=== PATIENT | male | born 1935 | race Caucasian/White ===

== ENCOUNTER → 2016-09-17 | Outpatient (REF) | payer OTHER ==
[~2016-09-17] MED LIST: ASPI325T PO; CALCTAB PO; HYDR25TAB PO; ICAPCAP PO; LISI10TA4 PO; MULT1TAB10 PO; OMEP40CA2 PO; PERCOCET PO; VITA200016 PO
== END ==
LOC: M SFHCLERA 12:46
PROVIDERS: ATTEND Physician Assistant
DX: J02.9 Acute pharyngitis, unspecified (principal)

== ENCOUNTER → 2017-03-08 | Outpatient (CLI) | payer OTHER ==
--- NOTE | 2017-03-08 11:23 | REP ---
Clinical: Hypertension . Comparison: 04/07/2016 . Technique: PA and lateral. Findings: The mediastinum and cardiac silhouette are normal. The lung elizabeth are clear and without acute consolidation, effusion, or pneumothorax. The skeletal structures are intact and normal. Impression: 1. No acute cardiopulmonary process. Signed by Nir Yoder MD 03/08/2017 11:14 A
[2017-03-08 12:08] LABS: ALBUMIN/GLOBULIN RATIO 1.33 (1.00-1.93); ALKALINE PHOSPHATASE 50 U/L (45-117); ALT/SGPT 34 U/L (12-78); ANION GAP 7 MEQ/L (8-16); AST/SGOT 19 U/L (15-37); BILIRUBIN,TOTAL 0.5 MG/DL (0.2-1.0); BLOOD UREA NITROGEN 24 MG/DL (7-18); CALCIUM LEVEL 8.5 MG/DL (8.8-10.2); CARBON DIOXIDE LEVEL 26 MEQ/L (21-32); CHLORIDE LEVEL 102 MEQ/L (98-107); CHOLESTEROL LEVEL 182 MG/DL (<200); CREATININE FOR GFR 1.15 MG/DL (0.70-1.30); GLOMERULAR FILTRATION RATE > 60.0 (>35); GLUCOSE, FASTING 152 MG/DL (83-110); POTASSIUM SERUM 3.9 MEQ/L (3.5-5.1); SODIUM LEVEL 135 MEQ/L (136-145); TRIGLYCERIDES LEVEL 256 MG/DL (<150)
[2017-03-08 12:35] LABS: MEAN CORPUSCULAR HEMOGLOBIN 32.3 pg (27.0-33.0); MEAN CORPUSCULAR HGB CONC 34.5 g/dl (32.0-36.5); MEAN CORPUSCULAR VOLUME 93.8 fl (80.0-96.0); RED CELL DISTRIBUTION WIDTH 11.9 % (11.5-14.5); WHITE BLOOD COUNT 6.9 K/mm3 (4.0-10.0)
--- NOTE | 2017-03-10 13:24 | ECGEPIP ---
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
== END ==
LOC: M LAB 10:44
PROVIDERS: ATTEND Family Medicine
DX: I10 Essential (primary) hypertension (principal); N40.0 Benign prostatic hyperplasia without lower urinary tract symptoms; Z79.899 Other long term (current) drug therapy

== ENCOUNTER 2018-10-27 13:06 | Emergency (ER) | payer MEDICARE, OTHER ==
[~2018-10-27] VITALS: Ht 175.3 cm; Wt 86.4 kg
[2018-10-27 13:55] LABS: BASO % 0.4 % (0.0-1.0); EOS % 0.4 % (0.0-3.0); HEMATOCRIT 41.8 % (42.0-52.0); HEMOGLOBIN 14.4 g/dl (13.5-17.5); LYMPH # 2.1 10^3/uL (1.5-4.5); LYMPH % 27.5 % (24.0-44.0); MEAN CORPUSCULAR HEMOGLOBIN 31.8 pg (27.0-33.0); MEAN CORPUSCULAR HGB CONC 34.4 g/dl (32.0-36.5); MEAN CORPUSCULAR VOLUME 92.3 fl (80.0-96.0); MONO # 0.8 10^3/uL (0.0-0.8); MONO % 10.2 % (0.0-5.0); NEUTROPHILS # 4.6 10^3/uL (1.8-7.7); NEUTROPHILS % 61.1 % (36.0-66.0); PLATELET COUNT, AUTOMATED 277 10^3/uL (150-450); RED BLOOD COUNT 4.53 10^6/uL (4.30-6.10); WHITE BLOOD COUNT 7.5 10^3/uL (4.0-10.0)
[2018-10-27 14:05] LABS: INR 1.01; PROTHROMBIN TIME 13.4 SECONDS (12.1-14.4)
[2018-10-27 14:06] LABS: PARTIAL THROMBOPLASTIN TIME 26.8 SECONDS (25.4-37.6)
--- NOTE | 2018-10-27 14:12 | REP ---
AP PORTABLE CHEST: 10/27/2018. COMPARISON: 03/08/2017 CLINICAL HISTORY: Chest pain. FINDINGS: The lung elizabeth are adequately inflated. Some minor basilar fibrotic change. Lordotic projection of the portable chest limits evaluation of the posterior lower lung zones. No gross infiltrate or effusion. No cardiomegaly, vascular redistribution, or pulmonary edema. The aorta is mildly tortuous but without gross aneurysm. Airway is intact. No abnormal widening of the mediastinum. Degenerative changes AC joints and shoulders as well as the spine. There are post-traumatic changes of the right lateral 6th rib with healing and remodeling. IMPRESSION: 1. Lordotic chest with slight exaggeration of heart size, no gross cardiomegaly, vascular redistribution , or edema. No visible infiltrate or definite effusion seen. The posterior lower lung zones are obscured on the portable lordotic chest. 2. Old healed and remodeled right lateral 6th rib fracture. Some minor basilar fibrotic change. Aorta tortuous but without aneurysm. Electronically Signed by Rogers Vial MD 10/27/2018 07:52 P
[2018-10-27 14:22] LABS: ALBUMIN 3.9 GM/DL (3.2-5.2); ALT/SGPT 27 U/L (12-78); BILIRUBIN,DIRECT 0.1 MG/DL (0.0-0.2); BILIRUBIN,TOTAL 0.5 MG/DL (0.2-1.0); BLOOD UREA NITROGEN 22 MG/DL (7-18); CALCIUM LEVEL 9.1 MG/DL (8.8-10.2); CARBON DIOXIDE LEVEL 31 MEQ/L (21-32); CHLORIDE LEVEL 103 MEQ/L (98-107); CPK CREATINE PHOSPHOKINASE 155 U/L (39-308); CREATININE FOR GFR 1.33 MG/DL (0.70-1.30); FREE T4 0.92 NG/DL (0.76-1.46); GLOMERULAR FILTRATION RATE 54.5 (>35); GLUCOSE, FASTING 102 MG/DL (70-100); LIPASE 206 U/L (73-393); MB/CK RELATIVE INDEX 1.48 (< OR =4); POTASSIUM SERUM 3.9 MEQ/L (3.5-5.1); SODIUM LEVEL 139 MEQ/L (136-145); THYROID STIMULATING HORMONE 0.716 uIU/ML (0.358-3.740); TOTAL PROTEIN 7.3 GM/DL (6.4-8.2); TROPONIN I < 0.02 NG/ML (< 0.10)
[2018-10-27] MEDS ORDERED: NS 1,000 ML IV SCH (15:30)
[2018-10-27 15:58] LABS: ERYTHROCYTE SEDIMENTATION RATE 9 mm/hr (0-20)
[2018-10-27 17:00] VITALS: BP 145/81
[2018-10-27] MEDS ORDERED: CIPROFLOXACIN 400 MG in APPROPRIATE DILUENT 1 EA IV ONE (17:30)
[2018-10-27] MEDS ORDERED: metroNIDAZOLE 500 MG in APPROPRIATE DILUENT 1 EA IV ONE (17:30)
--- NOTE | 2018-10-28 07:53 | REP ---
CT BRAIN WITHOUT CONTRAST: 10/27/2018. CLINICAL HISTORY: Headache. FINDINGS: There are no prior studies. Soft tissue and bone windows are reviewed for each slice level. Lateral ventricles are midline, symmetric, mildly dilated and proportionate to the moderately diffuse cerebral atrophy. All of this is age appropriate. Heterogeneous low attenuation white matter changes are seen throughout representing chronic small vessel white matter ischemic disease. There is no acute infarct, intracranial hemorrhage, mass, mass effect, or edema. No extra-axial fluid collections. The brainstem intact. Moderate atrophy in the cerebellum in a symmetric fashion. No posterior fossa hemorrhage. Bone windows show the mastoids and visualized sinuses clear. Skull base and calvarium are without fracture or focal lesion. There are vascular calcifications in the carotid siphons. IMPRESSION: 1. Chronic small vessel white matter ischemic changes throughout with ventriculomegaly in proportion to the cortical atrophy. This is age appropriate. No acute infarct, intracranial hemorrhage, mass, mass effect, or edema. 2. No fracture skull base or calvarium, and the sinuses and mastoids are clear. Electronically Signed by Rogers Vail MD 10/28/2018 08:23 A
--- NOTE | 2018-10-28 16:27 | ECGEPIP ---
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
== END 2018-10-27 17:39 | disposition home or self-care (01) ==
LOC: M ED 13:06
DX: R51 Headache (principal); N17.9 Acute kidney failure, unspecified; R00.1 Bradycardia, unspecified; I10 Essential (primary) hypertension; K21.9 Gastro-esophageal reflux disease without esophagitis; Z87.81 Personal history of (healed) traumatic fracture; Q25.46 Tortuous aortic arch; Z79.899 Other long term (current) drug therapy

== ENCOUNTER 2019-05-19 15:40 | Emergency (ER) | payer MEDICARE ==
[~2019-05-19] VITALS: Ht 175.3 cm; Wt 85.0 kg
[~2019-05-19 15:40] MED LIST changes: +HYDR-2541 PO; -HYDR25TAB PO; +OXYC1TAB23 PO; -PERCOCET PO
[2019-05-19] MEDS ORDERED: ONDANSETRON 4MG/2ML VIAL (J2405) IV ONE (16:45)
[2019-05-19 17:14] LABS: BASO % 0.4 % (0.0-1.0); EOS % 0.1 % (0.0-3.0); HEMATOCRIT 46.1 % (42.0-52.0); HEMOGLOBIN 15.8 g/dl (13.5-17.5); LYMPH # 1.6 10^3/uL (1.5-5.0); LYMPH % 14.8 % (24.0-44.0); MEAN CORPUSCULAR HEMOGLOBIN 32.2 pg (27.0-33.0); MEAN CORPUSCULAR HGB CONC 34.3 g/dl (32.0-36.5); MEAN CORPUSCULAR VOLUME 93.9 fl (80.0-96.0); MONO # 0.7 10^3/uL (0.0-0.8); MONO % 6.5 % (0.0-5.0); NEUTROPHILS # 8.4 10^3/uL (1.5-8.5); NEUTROPHILS % 77.6 % (36.0-66.0); PLATELET COUNT, AUTOMATED 286 10^3/uL (150-450); RED BLOOD COUNT 4.91 10^6/uL (4.30-6.10); WHITE BLOOD COUNT 10.8 10^3/uL (4.0-10.0)
[2019-05-19 17:41] LABS: ALBUMIN 4.2 GM/DL (3.2-5.2); ALT/SGPT 35 U/L (12-78); BILIRUBIN,DIRECT 0.1 MG/DL (0.0-0.2); BILIRUBIN,TOTAL 0.5 MG/DL (0.2-1.0); BLOOD UREA NITROGEN 20 MG/DL (7-18); CALCIUM LEVEL 9.3 MG/DL (8.8-10.2); CARBON DIOXIDE LEVEL 29 MEQ/L (21-32); CHLORIDE LEVEL 100 MEQ/L (98-107); CK-MB VALUE MASS 2.6 NG/ML (<3.6); CPK CREATINE PHOSPHOKINASE 169 U/L (39-308); CREATININE FOR GFR 1.23 MG/DL (0.70-1.30); GLOMERULAR FILTRATION RATE 59.7 (>35); GLUCOSE, FASTING 119 MG/DL (70-100); LIPASE 211 U/L (73-393); MB/CK RELATIVE INDEX 1.54 (< OR =4); POTASSIUM SERUM 4.5 MEQ/L (3.5-5.1); SODIUM LEVEL 137 MEQ/L (136-145); TOTAL PROTEIN 7.7 GM/DL (6.4-8.2); TROPONIN I < 0.02 NG/ML (< 0.10)
[2019-05-19 18:30] VITALS: BP 155/79
[2019-05-19] MEDS ORDERED: ONDA4TAB6 PO (18:58)
[2019-05-19] MEDS ORDERED: ONDANSETRON 4 MG TAB (S0181) PO ONE (19:30)
--- NOTE | 2019-05-19 20:42 | ECGEPIP ---
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
[2019-05-20] MEDS ORDERED: MULTCAP PO (09:58)
[2019-05-20] MEDS ORDERED: HYDR12.55 PO (09:58)
== END 2019-05-19 19:44 | disposition home or self-care (01) ==
LOC: M ED 15:40
DX: K52.9 Noninfective gastroenteritis and colitis, unspecified (principal)

== ENCOUNTER 2019-05-20 07:30 | Inpatient (IN) | payer MEDICARE ==
[~2019-05-20] VITALS: Ht 175.3 cm; Wt 85.5 kg
[~2019-05-20 07:30] MED LIST changes: +ONDA4TAB6 PO
[2019-05-20] MEDS ORDERED: METOCLOPRAMIDE INJ 10MG/2ML VIAL (J2765) IV ONE (08:00)
[2019-05-20] MEDS ORDERED: NS 500 ML IV ONE (08:00)
[2019-05-20] MEDS ORDERED: ISOVUE-370 76% 100ML VIAL (Q9967) As Ordered ONE (08:23)
[2019-05-20 08:29] LABS: BASO % 0.1 % (0.0-1.0); HEMATOCRIT 45.3 % (42.0-52.0); HEMOGLOBIN 15.8 g/dl (13.5-17.5); LYMPH # 1.7 10^3/uL (1.5-5.0); LYMPH % 10.4 % (24.0-44.0); MEAN CORPUSCULAR HEMOGLOBIN 31.9 pg (27.0-33.0); MEAN CORPUSCULAR HGB CONC 34.9 g/dl (32.0-36.5); MEAN CORPUSCULAR VOLUME 91.3 fl (80.0-96.0); MONO % 6.2 % (0.0-5.0); NEUTROPHILS # 13.1 10^3/uL (1.5-8.5); NEUTROPHILS % 82.8 % (36.0-66.0); PLATELET COUNT, AUTOMATED 321 10^3/uL (150-450); RED BLOOD COUNT 4.96 10^6/uL (4.30-6.10); WHITE BLOOD COUNT 15.9 10^3/uL (4.0-10.0)
[2019-05-20 09:00] LABS: ACETAMINOPHEN LEVEL < 2.0 UG/ML (10.0-30.0); ALBUMIN 4.1 GM/DL (3.2-5.2); ALT/SGPT 33 U/L (12-78); BILIRUBIN,DIRECT 0.2 MG/DL (0.0-0.2); BILIRUBIN,TOTAL 0.7 MG/DL (0.2-1.0); CPK CREATINE PHOSPHOKINASE 118 U/L (39-308); LIPASE 155 U/L (73-393); MB/CK RELATIVE INDEX 1.69 (< OR =4); SALICYLATE LEVEL < 1.7 MG/DL (5.0-30.0); TOTAL PROTEIN 7.1 GM/DL (6.4-8.2); TROPONIN I < 0.02 NG/ML (< 0.10)
[2019-05-20 09:04] LABS: AMPHETAMINES LEVEL URINE NEGATIVE (NEGATIVE); BARBITURATES URINE NEGATIVE (NEGATIVE); BENZODIAZEPINES URINE NEGATIVE (NEGATIVE); CANNABINOIDS URINE NEGATIVE (NEGATIVE); COCAINE METABOLITE URINE NEGATIVE (NEGATIVE); METHADONE URINE NEGATIVE (NEGATIVE); OPIATES URINE NEGATIVE (NEGATIVE); PHENCYCLIDINE URINE NEGATIVE (NEGATIVE)
[2019-05-20] MEDS ORDERED: HYDR12.55 PO (09:58)
[2019-05-20] MEDS ORDERED: MULTCAP PO (09:58)
--- NOTE | 2019-05-20 11:10 | HPEPDOC ---
[facility] Medical History & Physical Date of Admission May 20, 2019 Date of Service: May 20, 2019 History and Physical CHIEF COMPLAINT: nausea/vomiting HISTORY OF PRESENT ILLNESS: 83 yo male for 2 day history of intractable nausea with vomiting, occasionally bilious. Unable to tolerate liquid or solid food. Denies any other symptoms. Denies abdominal pain, chest pain, shortness of breath, headaches, diarrhea. PAST MEDICAL HISTORY: 1. HTN 2. GERD ALLERGIES: Please see below. REVIEW OF SYSTEMS: Negative except as per HPI. HOME MEDICATIONS: Please see below. PHYSICAL EXAMINATION: VITAL SIGNS: See below General: NAD, lying comfortably in bed, elderly HEENT: NC/AT, EOMI Lungs: CTA B/L Heart: +S1S2, RRR Abd: soft, NT, +BS Ext: no edema LABORATORY DATA: See below. MICROBIOLOGY: Please see below. ASSESSMENT/PLAN: 83 yo male for 2 day history of intractable nausea and vomiting, PMHx HTN, GERD. #N/V - NPO/IV fluids - GI c/s - possible EGD #HTN - continue lisinopril, hold HCTZ #GERD - continue PPI BID Vital Signs Vital Signs Date Time Temp Pulse Resp B/P (MAP) Pulse Ox O2 Delivery O2 Flow Rate FiO2 05/20/19 07:39 98.2 77 17 144/66 (92) 97 Room Air Laboratory Data Labs 24H Laboratory Tests 2 05/20/19 08:02: Immature Granulocyte % (Auto) 0.5, White Blood Count 15.9H, Red Blood Count 4.96, Hemoglobin 15.8, Hematocrit 45.3, Mean Corpuscular Volume 91.3, Mean Corpuscular Hemoglobin 31.9, Mean Corpuscular Hemoglobin Concent 34.9, Red Cell Distribution Width 12.1, Platelet Count 321, Neutrophils (%) (Auto) 82.8H, Lymphocytes (%) (Auto) 10.4L, Monocytes (%) (Auto) 6.2H, Eosinophils (%) (Auto) 0.0, Basophils (%) (Auto) 0.1, Neutrophils # (Auto) 13.1H, Lymphocytes # (Auto) 1.7, Monocytes # (Auto) 1.0H, Eosinophils # (Auto) 0.0, Basophils # (Auto) 0.0, Nucleated Red Blood Cells % (auto) 0.0, Lactic Acid Level 2.7*H, Aspartate Amino Transf (AST/SGOT) 17, Alanine Aminotransferase (ALT/SGPT) 33, Alkaline Phosphatase 55, Total Bilirubin 0.7, Direct Bilirubin 0.2, Total Creatine Kinase 118, Creatine Kinase MB 2.0, Creatine Kinase MB Relative Index 1.69, Troponin I < 0.02, Total Protein 7.1, Albumin 4.1, Albumin/Globulin Ratio 1.37, Lipase 155, Salicylates Level < 1.7L, Acetaminophen Level < 2.0L 05/20/19 08:04: Urine Amphetamines Screen NEGATIVE, Urine Benzodiazepines Screen NEGATIVE, Urine Opiates Screen NEGATIVE, Urine Methadone Screen NEGATIVE, Urine Barbiturates Screen NEGATIVE, Urine Phencyclidine Screen NEGATIVE, Urine Cocaine Metabolite Screen NEGATIVE, Urine Cannabinoids Screen NEGATIVE 05/20/19 08:07: POC Glucose (Misc Panel) 144H, POC Sodium (Misc Panel) 132L, POC Potassium (Misc Panel) 3.6, POC Chloride (Misc Panel) 94L, POC Total CO2 (Misc Panel) 28.0H, POC Blood Urea Nitrogen (Misc Panel 25, POC Ionized Calcium (Misc Panel) 4.2L, POC Creatinine (Misc Panel) 1.2, POC Hematocrit (Misc Panel) 48.0 CBC/BMP Laboratory Tests 05/20/19 08:02 Red Blood Count 4.96, Mean Corpuscular Volume 91.3, Mean Corpuscular Hemoglobin 31.9, Mean Corpuscular Hemoglobin Concent 34.9, Red Cell Distribution Width 12.1, Neutrophils (%) (Auto) 82.8 H, Lymphocytes (%) (Auto) 10.4 L, Monocytes (%) (Auto) 6.2 H, Eosinophils (%) (Auto) 0.0, Basophils (%) (Auto) 0.1, Neutrophils # (Auto) 13.1 H, Lymphocytes # (Auto) 1.7, Monocytes # (Auto) 1.0 H, Eosinophils # (Auto) 0.0, Basophils # (Auto) 0.0 Home Medications Scheduled Hydrochlorothiazide (Hydrochlorothiazide) 12.5 Mg Tablet, 12.5 MG PO DAILY Lisinopril (Lisinopril) 10 Mg Tab, 10 MG PO DAILY Multivitamin (Multivitamins) 1 Each Capsule, 1 CAP PO DAILY Omeprazole (Omeprazole) 40 Mg Cap, 40 MG PO BID Allergies Coded Allergies: No Known Allergies (Unverified , 05/19/19) A-FIB/CHADSVASC A-FIB History Current/History of A-Fib/PAF?: No Current PO Anticoag Therapy: No HEATH LUCERO MD May 20, 2019 11:10
[2019-05-20 11:30] VITALS: BP 136/66
[2019-05-20] MEDS: LISINOPRIL 10 MG TAB PO SCH (12:20)
[2019-05-20] MEDS: OMEPRAZOLE 20 MG CAP PO SCH ×2 (12:20→21:10)
--- NOTE | 2019-05-20 12:20 | REP ---
CT of the head without contrast Indication: Delusional, vomiting, evaluate for mass/ICH. Comparison: Head CT of 10/27/2018. Technique: Axial CT of the head was performed without contrast. Findings: There is no visible soft tissue swelling or calvarial fracture. There is no evidence of acute intracranial hemorrhage or extra-axial fluid collection. There is a some similar appearance of scattered hypodensities within the periventricular and subcortical white matter which is nonspecific but suggestive of microvascular ischemic disease. There is no mass effect or midline shift. The basal cisterns are patent. Note is made of intracranial vascular calcification, similar to prior. There is no hydrocephalus. The visualized paranasal sinuses and mastoid air cells are clear. Impression: No acute intracranial abnormality. Similar white matter disease. Electronically Signed by Rachid Santana MD 05/20/2019 08:49 A
[2019-05-20] MEDS: NS 1,000 ML IV SCH (12:21)
--- NOTE | 2019-05-20 13:48 | REP ---
CT ABDOMEN AND PELVIS WITH IV BUT WITHOUT ORAL CONTRAST: HISTORY: Persistent vomiting. Rule out small bowel obstruction. Comparison study April 07, 2016. CT CONTRAST DOSE: 100 mL of intravenous Isovue 370. CT FINDINGS: Preliminary digital patent attorney radiographs are unremarkable. No abnormality in the bowel gas pattern. The lung bases show minimal pleuroparenchymal fibrotic changes with areas of pleural plaquing unchanged. There is mild to moderate diffuse fatty infiltration of the liver with some sparing of the left hepatic lobe. Spleen is unremarkable. No adrenal lesion is seen on either side. No abnormalities noted in the pancreas. The kidneys enhance symmetrically and are morphologically intact. No abnormality is noted in the gallbladder. There is no evidence of free intraperitoneal air. The stomach and duodenum and the proximal loop of jejunum are mildly dilated and air and fluid-filled. No upper small bowel obstructive lesion is appreciated. There is a periumbilical ventral hernia transmitting an unobstructed loop of small intestine unchanged from the 2016 prior study. No other abdominal wall defect is seen. There is a small quantity of fluid in the abdomen right lower quadrant and in the pelvic reflection. There is diverticulosis of the sigmoid colon which is fairly extensive. There is subtle mural thickening in the sigmoid colon just above the urinary bladder, which may reflect mild diverticulitis. An air-filled loop of small intestine is seen in the right lower quadrant question ileus. Prostate is enlarged and contains dystrophic calcifications. No bony destructive lesion. Appendix is not identified but there is no inflammatory change adjacent to the cecum. IMPRESSION: Small quantity of ascitic fluid in the pelvis, no free air . Left colonic diverticulosis, question mild diverticulitis sigmoid colon. Air and fluid-filled loop of right lower quadrant ileum question ileus. No obstructive lesion seen. There is also fluid distension of the stomach and duodenum and proximal jejunum without an obstructive lesion. There is an umbilical hernia transmitting unobstructed loop of mid small bowel unchanged. Electronically Signed by Saeed Moraes MD 05/20/2019 02:19 P
[2019-05-20 14:00] VITALS: BP 115/61
--- NOTE | 2019-05-20 17:28 | CR.PDOC ---
General Date of Consultation: May 20, 2019 Referring Provider: HEATH LUCERO MD Attending Physician: STEVE GRIGGS MD Consultation HPI: 83 year old male patient with HTN, chronic acid reflux ( last EGD done by Dr. Mccrary in 2016 - normal), was admitted to [facility] for several episodes of vomi ting. GI was consulted for the same. Patient reports acute onset symptoms of nausea and vomiting, multiple episodes since yesterday morning till today morning. Patient reports eating outside food the day prior to the onset of these symptoms. Patient reports no sick contacts, no recent travel, no fever and no diarrhea. Patient reports today he is feeling better with decreased nausea and feeling hungry. Patient also had three loose watery stools today. Pertinent negative GI symptoms: Patient denies fever, sick contacts, recent travel, loss of appetite, early satiety or unintentional weight loss. No history of hematemesis, melena or hematochezia. Review of Systems: GI: as stated above CVS: No chest pain, No palpitations, No leg swelling. RS: No Shortness of breath, No Wheezing, no cough CORPORATE LAW SPECIALIST: No dizziness, No motor weakness, No sensory problems Hematology: No bruising, No gum bleeding, Musculoskeletal: No joint pain, ambulating well. Skin: No rash : No hematuria, No burning sensation of the urine ENT: No ear discharge/ pain, No dysphagia. Eyes: No photophobia. Jaundice Home medications: reviewed. Antithrombotic agents - None Medical h/o: As above. Surgical h/o: None on abdomen. Social h/o: Alcohol - Denies, smoking - quit smoking at the age of 39 years, IVDA/ drugs - denies. Family h/o of GI cancers - None Prior Endoscopies: --- EGD -- in [address] Bowman for acid reflux - Was normal. --- Colonoscopy in 2016 by Colby-- for surveillance -- noted one hyperplastic polyp. Recommended no further screening. Prior GI evaluations: Previously see in [facility] for acid reflux and Colonoscopy. Exam: Vitals: reviewed General: Alert and oriented x 3, not in distress HEENT: NO pallor, no icterus. Normal oropharynx, NO cervical lymph nodes. Chest: symmetric with bilateral clear air entry, CVS: S1, S2 heard, normal, no murmurs . Abdomen: non-distended, no surgical scars, soft, non-tender, no palpable masses, normal bowel sounds heard. Rectal exam: Patient refused. Extremities: no pedal edema, pulses palpable. CORPORATE LAW SPECIALIST: no focal motor or sensory deficits. Moves all extremities Skin: no rash. Labs: reviewed. Impression: - Acute onset nausea, vomiting for 1 day with some diarrheal stools today, with all symptoms gradually improving with IV hydration and nausea medications -- LIkely acute toxin related gastroenteritis vs viral gastroenteritis. Recommendations: - Patient educated about the test results, possible differential diagnoses and All questions answered. - Continue with IV hydration and PRN anti- emetics. - Cotninue with PPI for now and then based on the symptoms, tapering course. - Advance diet as tolerated. - Upon adequate fluid resuscitation, patient can be discharged from GI point of view with oral anti-emetics for short course of 2-3 days. - As prior normal EGD in 2016 and clinical picture of acute gastroenteritis, patient would not require another EGD at this time. - If persistent or recurrent symptoms, patient to be refered back to GI clinic from PCP clinic.. Plan of care discussed with patient and primary team. Patient verbalized understanding and agreed with the plan. Laboratory Data CBC/BMP Laboratory Tests 05/20/19 08:02 Red Blood Count 4.96, Mean Corpuscular Volume 91.3, Mean Corpuscular Hemoglobin 31.9, Mean Corpuscular Hemoglobin Concent 34.9, Red Cell Distribution Width 12.1, Neutrophils (%) (Auto) 82.8 H, Lymphocytes (%) (Auto) 10.4 L, Monocytes (%) (Auto) 6.2 H, Eosinophils (%) (Auto) 0.0, Basophils (%) (Auto) 0.1, Neutrophils # (Auto) 13.1 H, Lymphocytes # (Auto) 1.7, Monocytes # (Auto) 1.0 H, Eosinophils # (Auto) 0.0, Basophils # (Auto) 0.0 Allergies Coded Allergies: No Known Allergies (Unverified , 05/19/19) Home Medications Scheduled Hydrochlorothiazide (Hydrochlorothiazide) 12.5 Mg Tablet, 12.5 MG PO DAILY, (Reported) Lisinopril (Lisinopril) 10 Mg Tab, 10 MG PO DAILY, (Reported) Multivitamin (Multivitamins) 1 Each Capsule, 1 CAP PO DAILY, (Reported) Omeprazole (Omeprazole) 40 Mg Cap, 40 MG PO BID, (Reported) STEVE GRIGGS MD May 20, 2019 17:28
[2019-05-20 22:00] VITALS: BP 123/54
[2019-05-21] MEDS: NS 1,000 ML IV SCH (01:41)
[2019-05-21 05:22] VITALS: BP 95/50
[2019-05-21 06:13] LABS: HEMATOCRIT 39.9 % (42.0-52.0); HEMOGLOBIN 13.5 g/dl (13.5-17.5); MEAN CORPUSCULAR HEMOGLOBIN 32.4 pg (27.0-33.0); MEAN CORPUSCULAR HGB CONC 33.8 g/dl (32.0-36.5); MEAN CORPUSCULAR VOLUME 95.7 fl (80.0-96.0); PLATELET COUNT, AUTOMATED 241 10^3/uL (150-450); RED BLOOD COUNT 4.17 10^6/uL (4.30-6.10)
[2019-05-21 06:30] LABS: CALCIUM LEVEL 8.3 MG/DL (8.8-10.2); CREATININE FOR GFR 1.26 MG/DL (0.70-1.30); POTASSIUM SERUM 4.4 MEQ/L (3.5-5.1)
[2019-05-21 06:55] VITALS: BP 113/55
[2019-05-21 09:05] VITALS: BP 113/55
[2019-05-21] MEDS: LISINOPRIL 10 MG TAB PO SCH (09:05)
[2019-05-21] MEDS: OMEPRAZOLE 20 MG CAP PO SCH (09:05)
--- NOTE | 2019-05-23 01:10 | DS.PDOC ---
Discharge Summary General Date of Admission May 20, 2019 at 09:29 Date of Discharge 05/20/2019 Attending Physician: HAMLET HERNANDEZ MD Specialist/Consultants Involve: STEVE GRIGGS MD Discharge Summary PROCEDURES PERFORMED DURING STAY: None ADMITTING DIAGNOSES: 1. Gastroenteritis DISCHARGE DIAGNOSES: 1. Acute gastroenteritis - resolved COMPLICATIONS/CHIEF COMPLAINT: Nausea Vomiting. HISTORY OF PRESENT ILLNESS: 83 year old man with hypertension chronic acid reflux previously on a PPI but had recently stopped it after viewing an informercial that suggested PPIs to cause other illnesses who presented to the ED with several episodes of vomiting after a meal. HOSPITAL COURSE: Initial work up was notable for a leukocytosis and mild RITU. The leukocytosis resolved by day 2 without intervention. GI was consulted that recommended that given the acute onset symptoms after new takeout food he likely had acute gastroenteritis given that by the time GI evaluated him, he was feeling much better with decreased nausea and feeling hungry. On admission he had been started on IV fluids, was initially NPO, and started on IV protonix BID. He is now being discharged home where he reports that he will resume his home PPI therapy that he had self discontinued as he notes a return of heartburn as well. DISCHARGE MEDICATIONS: Please see below. ALLERGIES: Please see below. PHYSICAL EXAMINATION ON DISCHARGE: VITAL SIGNS: Please see below. Vitals: reviewed General: Alert and oriented x 3, not in distress HEENT: NO pallor, no icterus. Normal oropharynx, NO cervical lymph nodes. Chest: symmetric with bilateral clear air entry, CVS: S1, S2 heard, normal, no murmurs . Abdomen: non-distended, no surgical scars, soft, non-tender, no palpable masses, normal bowel sounds heard. Rectal exam: Patient refused. Extremities: no pedal edema, pulses palpable. SERVICE AND REPAIR SUPERVISOR: no focal motor or sensory deficits. Moves all extremities Skin: no rash. LABORATORY DATA: Please see below. IMAGIN05/20/2019: CT abdomen pelvis Small quantity of ascitic fluid in the pelvis, no free air . Left colonic diverticulosis, question mild diverticulitis sigmoid colon. Air and fluid- filled loop of right lower quadrant ileum question ileus. No obstructive lesion seen. There is also fluid distension of the stomach and duodenum and proximal jejunum without an obstructive lesion. There is an umbilical hernia transmitting unobstructed loop of mid small bowel unchanged. 05/20/2019: Non contrast head CT No intracranial abnormalities noted. PROGNOSIS: good ACTIVITY: as tolerated DIET: regular, as tolerated DISCHARGE PLAN: home with PCP follow up DISPOSITION: 01 Home, Self-Care. DISCHARGE INSTRUCTIONS: 1. Please follow up with your PCP within 10 days of discharge ITEMS TO FOLLOWUP ON ON OUTPATIENT: 1. Resolution of acute gastroenteritis DISCHARGE CONDITION: Good TIME SPENT ON DISCHARGE: Greater than 25 minutes. Vital Signs/I&Os Vital Signs Date Time Temp Pulse Resp B/P (MAP) Pulse Ox O2 Delivery O2 Flow Rate FiO2 05/21/19 09:05 113/55 05/21/19 06:55 61 05/21/19 05:22 98.8 18 97 05/20/19 11:26 Room Air Discharge Medications Scheduled Hydrochlorothiazide (Hydrochlorothiazide) 12.5 Mg Tablet, 12.5 MG PO DAILY, (Reported) Lisinopril (Lisinopril) 10 Mg Tab, 10 MG PO DAILY, (Reported) Multivitamin (Multivitamins) 1 Each Capsule, 1 CAP PO DAILY, (Reported) Omeprazole (Omeprazole) 40 Mg Cap, 40 MG PO BID, (Reported) Allergies Coded Allergies: No Known Allergies (Unverified , 05/19/19) HAMLET HERNANDEZ MD May 23, 2019 01:10
== END 2019-05-21 11:10 | disposition home or self-care (01) | DRG 395 ==
LOC: M ED 07:30 → EDSEX 07:30 → EDBD 07:30 → M ED INP 09:29 → M MSPAV 11:33
PROVIDERS: ADMIT Internal Medicine; ATTEND Internal Medicine
DX: K52.1 Toxic gastroenteritis and colitis (principal); I10 Essential (primary) hypertension; K21.9 Gastro-esophageal reflux disease without esophagitis; D72.829 Elevated white blood cell count, unspecified; Z79.899 Other long term (current) drug therapy

== ENCOUNTER 2019-06-25 04:11 | Emergency (ER) | payer MEDICARE ==
[~2019-06-25] VITALS: Ht 175.3 cm; Wt 85.0 kg
[~2019-06-25 04:11] MED LIST changes: +HYDR12.55 PO; +MULTCAP PO; -OMEP40CA2 PO; +OMEP40CA97 PO
[2019-06-25 05:07] VITALS: BP 126/68
--- NOTE | 2019-06-25 05:07 | REP ---
Clinical: Acute chest pain . Comparison: 03/08/2017, 10/27/2018 . Findings: The mediastinum and cardiac silhouette are stable and within normal limits for portable technique. The lung elizabeth are clear without acute consolidation, effusion, or pneumothorax. Skeletal structures are intact. Impression: No acute cardiopulmonary process appreciated. Electronically Signed by Nir Yoder MD 06/25/2019 04:59 A
--- NOTE | 2019-06-25 09:35 | ECGEPIP ---
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
== END 2019-06-25 05:14 | disposition left against medical advice (07) ==
LOC: M ED 04:11
DX: R07.9 Chest pain, unspecified (principal); I10 Essential (primary) hypertension; K21.9 Gastro-esophageal reflux disease without esophagitis; F41.9 Anxiety disorder, unspecified; Z79.899 Other long term (current) drug therapy; Z53.21 Procedure and treatment not carried out due to patient leaving prior to being seen by health care provider

== ENCOUNTER 2020-07-09 00:20 | Emergency (ER) | payer MEDICARE ==
[~2020-07-09] VITALS: Ht 175.3 cm; Wt 81.8 kg
[2020-07-09] MEDS ORDERED: AUGMENTIN 875 MG TAB PO ONE (01:00)
[2020-07-09] MEDS ORDERED: NON-325T5 PO (01:24)
[2020-07-09] MEDS ORDERED: AUGM875T28 PO (01:24)
[2020-07-09] MEDS ORDERED: KETOROLAC TROMETHAMINE 10 MG TAB PO ONE (01:30)
[2020-07-09 01:45] VITALS: BP 132/58
== END 2020-07-09 01:45 | disposition home or self-care (01) ==
LOC: M ED 00:20
DX: K02.9 Dental caries, unspecified (principal); I10 Essential (primary) hypertension; K21.9 Gastro-esophageal reflux disease without esophagitis; Z79.899 Other long term (current) drug therapy

== ENCOUNTER 2020-11-03 18:44 | Emergency (ER) | payer MEDICARE, MEDICAID ==
[~2020-11-03] VITALS: Ht 175.3 cm; Wt 88.0 kg
[~2020-11-03 18:44] MED LIST changes: +ACET-838 PO; +AUGM875T28 PO; +LISI10TA22 PO; -LISI10TA4 PO
--- OUTSIDE RECORDS SUMMARY | 2020-11-03 18:55 | CCD ---
Author Author [facility] Organization [facility] Address Unknown Phone Unavailable Support Name Relationship Address Phone JOSE ROBERTO KEMP Next Of Kin [address] [place] [address] [address] [place] [address] RETIRED Next Of Kin Unknown RE Next Of Kin Unknown Unavailable GANESH SMITH Next Of Kin [address] [place] [address] [address] [place] [address] GANESH SMITH [address] [place] [address] Unavailable Re-disclosure Warning The records that you are about to access may contain information from federally-assisted alcohol or drug abuse programs. If such information is present, then the following federally mandated warning applies: This information has been disclosed to you from records protected by federal confidentiality rules (42 CFR part 2). The federal rules prohibit you from making any further disclosure of this information unless further disclosure is expressly permitted by the written consent of the person to whom it pertains or as otherwise permitted by 42 CFR part 2. A general authorization for the release of medical or other information is NOT sufficient for this purpose. The Federal rules restrict any use of the information to criminally investigate or prosecute any alcohol or drug abuse patient.The records that you are about to access may contain highly sensitive health information, the redisclosure of which is protected by Article 27-F of the [facility] Public Health law. If you continue you may have access to information: Regarding HIV / AIDS; Provided by facilities licensed or operated by the [facility] Office of Mental Health; or Provided by the [facility] Office for People With Developmental Disabilities. If such information is present, then the following [facility] mandated warning applies: This information has been disclosed to you from confidential records which are protected by state law. State law prohibits you from making any further disclosure of this information without the specific written consent of the person to whom it pertains, or as otherwise permitted by law. Any unauthorized further disclosure in violation of state law may result in a fine or mcc sentence or both. A general authorization for the release of medical or other information is NOT sufficient authorization for further disc losure. Family History Family Member Name Family Member Gender Family Member Status Date o f Status Description Data Source(s) Unknown Female Problem [facility] ([facility]) Unknown Female Problem [facility] ([facility]) Unknown Female Problem [facility] ([facility]) Unknown Female Problem [facility] ([facility]) Insurance Providers Payer name Policy type / Coverage type Policy ID Covered democrat ID Covered democrat's relationship to reyes Policy Reyes Plan Information [employer] [id number] SP [id number] [employer] [place] [id number] [employer] (HM O) [id number] TODAYS OPTIONS [id number] SP [id number] Today's Options Medicare Commercial Self Today's Options Ppo Commercial Self [id number] Results ID Date Data Source [id number] 07/09/2020 01:12:00 AM EDT [facility] ([facility]) Name Value Range Interpretation Code Description Data Ilsa rce(s) Supporting Document(s) Laboratory test finding (navigational concept) 42.0 % 3 8.0-51.0 Normal (applies to non-numeric results) [facility] ([facility]) Laboratory test finding (navigational concept) 4.4 meq/L 3 .5-5.1 Normal (applies to non-numeric results) [facility] ([facility]) Laboratory test finding (navigational concept) 114 mg/dL 7 0-105 Above high normal [facility] ([facility]) Laboratory test finding (navigational concept) 139 meq/L 1 36-145 Normal (applies to non-numeric results) [facility] ([facility]) Laboratory test finding (navigational concept) 4.9 mg/dL 4 .5-5.3 Normal (applies to non-numeric results) [facility] ([facility]) Laboratory test finding (navigational concept) 27.0 MM/L 2 3.0-27.0 Normal (applies to non-numeric results) [facility] Laboratory test finding (navigational concept) 99 meq/L 9 8-109 Normal (applies to non-numeric results) [facility] ([facility]) Laboratory test finding (navigational concept) 19 mg/dL 8 -26 Normal (applies to non-numeric results) [facility] Laboratory test finding (navigational concept) 1.1 mg/dL 0 .6-1.3 Normal (applies to non-numeric results) [facility] ([facility]) Procedure
[2020-11-03] MEDS ORDERED: ASPIRIN 81 MG CHEW TABLET PO ONE (19:15)
--- NOTE | 2020-11-03 20:17 | REP ---
INDICATION: CHEST PAIN. COMPARISON: Comparison chest x-ray June 25, 2019. TECHNIQUE: Portable upright AP chest radiograph. FINDINGS: The lungs are well inflated and free of infiltrate. Pleural angles are sharp. Heart size is normal. Pulmonary vasculature is not increased. Monitoring electrodes are noted. IMPRESSION: No active disease. <Electronically signed by Kirill Moraes > 11/03/202012
[2020-11-03 20:18] LABS: ALBUMIN 3.5 GM/DL (3.2-5.2); ALT/SGPT 30 U/L (12-78); BILIRUBIN,DIRECT < 0.1 MG/DL (0.0-0.2); BILIRUBIN,TOTAL 0.3 MG/DL (0.2-1.0); BLOOD UREA NITROGEN 29 MG/DL (7-18); CALCIUM LEVEL 9.1 MG/DL (8.8-10.2); CARBON DIOXIDE LEVEL 28 MEQ/L (21-32); CHLORIDE LEVEL 102 MEQ/L (98-107); FREE T4 1.05 NG/DL (0.76-1.46); GLOMERULAR FILTRATION RATE 51.2 (>35); GLUCOSE, FASTING 133 MG/DL (70-100); LIPASE 185 U/L (73-393); POTASSIUM SERUM 4.2 MEQ/L (3.5-5.1); SODIUM LEVEL 138 MEQ/L (136-145); TOTAL PROTEIN 6.7 GM/DL (6.4-8.2)
[2020-11-03 21:09] LABS: BASO # 0.1 10^3/uL (0.0-0.2); BASO % 0.6 % (0.0-1.0); EOS # 0.1 10^3/uL (0.0-0.5); EOS % 0.9 % (0.0-3.0); HEMOGLOBIN 13.5 g/dl (13.5-17.5); LYMPH # 2.5 10^3/uL (1.5-5.0); LYMPH % 29.3 % (24.0-44.0); MEAN CORPUSCULAR HEMOGLOBIN 31.3 pg (27.0-33.0); MEAN CORPUSCULAR HGB CONC 32.9 g/dl (32.0-36.5); MEAN CORPUSCULAR VOLUME 95.1 fl (80.0-96.0); MONO # 1.2 10^3/uL (0.0-0.8); NEUTROPHILS # 4.6 10^3/uL (1.5-8.5); NEUTROPHILS % 54.6 % (36.0-66.0); PLATELET COUNT, AUTOMATED 285 10^3/uL (150-450); RED BLOOD COUNT 4.31 10^6/uL (4.30-6.10); WHITE BLOOD COUNT 8.4 10^3/uL (4.0-10.0)
[2020-11-03 21:19] LABS: RSV AMPLIFICATION NEGATIVE (NEGATIVE)
[2020-11-03 23:15] VITALS: BP 163/77
--- OUTSIDE RECORDS SUMMARY | 2020-11-03 23:39 | CCD ---
Author Author [facility] Organization [facility] Address Unknown Phone Unavailable Support Name Relationship Address Phone JOSE ROBERTO KEMP Next Of Kin [address] [place] [address] [address] [place] [address] RETIRED Next Of Kin Unknown RE Next Of Kin Unknown Unavailable GANESH SMITH Next Of Kin [address] [place] [address] [address] [place] [address] GANESH SMITH [address] [place] [address] Unavailable Re-disclosure Warning The records that you [...] is protected by Article 27-F of the [facility] Public Health law. If you continue you may have access to information: Regarding HIV / AIDS; Provided by facilities licensed or operated by the [facility] Office of Mental Health; or Provided by the [facility] Office for People With Developmental Disabilities. If such information is present, then the following [facility] mandated warning applies: This information has [...] law may result in a fine or nursing home sentence or both. A general authorization for [...] relationship to reyes Policy Reyes Plan Information [facility] [id number] SP [id number] [employer] [id number] SP [id number] [employer] [place] [id number] [employer] Maintenance Organization (HM O) [id number] TODAYS OPTIONS [id number] SP [id number] Today's Options Medicare Commercial Self Today's Options Ppo Commercial Self [id number] Results ID Date Data Source [id number] 07/09/2020 01:12:00 AM EDT [facility] ([facility]) Name Value Range Interpretation Code Description Data Ilsa rce(s) Supporting Document(s) Laboratory test finding (navigational concept) 42.0 % 3 8.0-51.0 Normal (applies to non-numeric results) [facility] ([facility]) Laboratory test finding (navigational concept) 4.4 meq/L 3 .5-5.1 Normal (applies to non-numeric results) [facility] ([facility]) Laboratory test finding (navigational concept) 114 mg/dL 7 0-105 Above high normal [facility] ([facility]) Laboratory test finding (navigational concept) 139 meq/L 1 36-145 Normal (applies to non-numeric results) [facility] ([facility]) Laboratory test finding (navigational concept) 4.9 mg/dL 4 .5-5.3 Normal (applies to non-numeric results) [facility] ([facility]) Laboratory test finding (navigational concept) 27.0 MM/L 2 3.0-27.0 Normal (applies to non-numeric results) [facility] ([facility]) Laboratory test finding (navigational concept) 99 meq/L 9 8-109 Normal (applies to non-numeric results) [facility] ([facility]) Laboratory test finding (navigational concept) 19 mg/dL 8 -26 Normal (applies to non-numeric results) [facility] ([facility]) Laboratory test finding (navigational concept) 1.1 mg/dL 0 .6-1.3 Normal (applies to non-numeric results) [facility] ([facility]) Procedure
--- NOTE | 2020-11-04 07:45 | ECGEPIP ---
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
--- NOTE | 2020-11-05 09:23 | ECGEPIP ---
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
== END 2020-11-03 23:25 | disposition home or self-care (01) ==
LOC: M ED 18:44
DX: R07.89 Other chest pain (principal); R00.2 Palpitations; R06.02 Shortness of breath; E11.9 Type 2 diabetes mellitus without complications; I10 Essential (primary) hypertension; Z79.899 Other long term (current) drug therapy

== ENCOUNTER 2020-11-11 16:23 | Emergency (ER) | payer MEDICAID, MEDICARE ==
[~2020-11-11] VITALS: Ht 175.3 cm; Wt 87.7 kg
[2020-11-11] MEDS ORDERED: OMEP10CASR PO (16:34)
--- NOTE | 2020-11-11 17:29 | REP ---
INDICATION: CHEST PAIN. COMPARISON: 11/03/2020. TECHNIQUE: SINGLE PORTABLE AP VIEW OF THE CHEST WAS PERFORMED. FINDINGS: There is mild linear fibro atelectatic change. There is no acute infiltrate. The heart is normal in size. The mediastinal silhouette is unremarkable and unchanged. IMPRESSION: NO ACUTE PULMONARY DISEASE. <Electronically signed by Denilson Aguilar > 11/11/20 [id number]
[2020-11-11 17:43] LABS: BASO # 0.1 10^3/uL (0.0-0.2); BASO % 0.6 % (0.0-1.0); EOS # 0.1 10^3/uL (0.0-0.5); EOS % 0.9 % (0.0-3.0); HEMATOCRIT 41.9 % (42.0-52.0); HEMOGLOBIN 14.2 g/dl (13.5-17.5); LYMPH % 24.9 % (24.0-44.0); MEAN CORPUSCULAR HEMOGLOBIN 31.9 pg (27.0-33.0); MEAN CORPUSCULAR HGB CONC 33.9 g/dl (32.0-36.5); MEAN CORPUSCULAR VOLUME 94.2 fl (80.0-96.0); MONO # 0.9 10^3/uL (0.0-0.8); MONO % 11.7 % (2.0-8.0); NEUTROPHILS # 4.9 10^3/uL (1.5-8.5); NEUTROPHILS % 60.9 % (36.0-66.0); PLATELET COUNT, AUTOMATED 321 10^3/uL (150-450); RED BLOOD COUNT 4.45 10^6/uL (4.30-6.10)
[2020-11-11 18:13] LABS: ALBUMIN 3.8 GM/DL (3.2-5.2); ALT/SGPT 32 U/L (12-78); BILIRUBIN,DIRECT < 0.1 MG/DL (0.0-0.2); BILIRUBIN,TOTAL 0.2 MG/DL (0.2-1.0); BLOOD UREA NITROGEN 22 MG/DL (7-18); CALCIUM LEVEL 9.1 MG/DL (8.8-10.2); CARBON DIOXIDE LEVEL 31 MEQ/L (21-32); CHLORIDE LEVEL 101 MEQ/L (98-107); CK-MB VALUE MASS 1.3 NG/ML (<3.6); CPK CREATINE PHOSPHOKINASE 94 U/L (39-308); GLOMERULAR FILTRATION RATE > 60.0 (>35); GLUCOSE, FASTING 134 MG/DL (70-100); LIPASE 203 U/L (73-393); MAGNESIUM LEVEL 2.5 MG/DL (1.8-2.4); MB/CK RELATIVE INDEX 1.38 (< OR =4); NT-PRO BNP 30 PG/ML (<450); POTASSIUM SERUM 4.2 MEQ/L (3.5-5.1); SODIUM LEVEL 137 MEQ/L (136-145); THYROID STIMULATING HORMONE 0.651 uIU/ML (0.358-3.740); TOTAL PROTEIN 6.9 GM/DL (6.4-8.2); TROPONIN I < 0.02 NG/ML (< 0.10)
[2020-11-11 19:11] VITALS: BP 137/65
--- NOTE | 2020-11-13 07:50 | ECGEPIP ---
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
== END 2020-11-11 19:28 | disposition home or self-care (01) ==
LOC: M ED 16:23
DX: R53.83 Other fatigue (principal); I10 Essential (primary) hypertension; K21.9 Gastro-esophageal reflux disease without esophagitis; Z79.899 Other long term (current) drug therapy

== ENCOUNTER 2021-04-26 15:56 | Emergency (ER) | payer MEDICARE ==
[~2021-04-26] VITALS: Ht 175.3 cm; Wt 81.8 kg
[~2021-04-26 15:56] MED LIST changes: -ACET-838 PO; +ACET32TAB PO; +OMEP10CASR PO; +OMEP40CA4 PO; -OMEP40CA97 PO
[2021-04-26 15:57] VITALS: BP 125/73
== END 2021-04-26 17:55 | disposition left against medical advice (07) ==
LOC: M ED 15:56
DX: Z53.21 Procedure and treatment not carried out due to patient leaving prior to being seen by health care provider (principal)

== ENCOUNTER 2021-05-11 06:50 | Emergency (ER) | payer MEDICARE ==
[~2021-05-11] VITALS: Ht 175.3 cm; Wt 86.1 kg
[2021-05-11] MEDS ORDERED: HYDR-3490 PO (07:04)
[2021-05-11] MEDS ORDERED: LISI20TA33 PO (07:04)
[2021-05-11] MEDS ORDERED: ASPIRIN 81 MG CHEW TABLET PO ONE (08:15)
--- NOTE | 2021-05-11 08:36 | REP ---
INDICATION: CHEST PAIN. COMPARISON: Comparison chest x-ray November 11, 2020. TECHNIQUE: Portable upright AP chest radiograph. FINDINGS: The lungs are well inflated and free of infiltrate. Pleural angles are sharp. Heart size is normal. Pulmonary vasculature is not increased. The thoracic aorta is somewhat tortuous. There are degenerative changes in the thoracic spine. Old rib fractures are noted on the right. IMPRESSION: No active disease. <Electronically signed by Kirill Moraes > 05/11/21 0622
[2021-05-11 09:01] LABS: BASO % 0.6 % (0.0-1.0); EOS % 0.6 % (0.0-3.0); HEMATOCRIT 41.9 % (42.0-52.0); HEMOGLOBIN 14.2 g/dl (13.5-17.5); LYMPH # 1.5 10^3/uL (1.5-5.0); LYMPH % 21.7 % (24.0-44.0); MEAN CORPUSCULAR HEMOGLOBIN 31.8 pg (27.0-33.0); MEAN CORPUSCULAR HGB CONC 33.9 g/dl (32.0-36.5); MEAN CORPUSCULAR VOLUME 93.7 fl (80.0-96.0); MONO # 0.8 10^3/uL (0.0-0.8); MONO % 10.9 % (2.0-8.0); NEUTROPHILS # 4.6 10^3/uL (1.5-8.5); NEUTROPHILS % 65.3 % (36.0-66.0); PLATELET COUNT, AUTOMATED 273 10^3/uL (150-450); RED BLOOD COUNT 4.47 10^6/uL (4.30-6.10)
[2021-05-11 09:20] LABS: BLOOD UREA NITROGEN 22 MG/DL (7-18); CALCIUM LEVEL 9.6 MG/DL (8.8-10.2); CARBON DIOXIDE LEVEL 30 MEQ/L (21-32); CHLORIDE LEVEL 104 MEQ/L (98-107); CREATININE FOR GFR 1.11 MG/DL (0.70-1.30); GLOMERULAR FILTRATION RATE > 60.0 (>35); GLUCOSE, FASTING 111 MG/DL (70-100); POTASSIUM SERUM 4.7 MEQ/L (3.5-5.1); SODIUM LEVEL 139 MEQ/L (136-145)
[2021-05-11 09:50] LABS: RSV AMPLIFICATION NEGATIVE (NEGATIVE)
[2021-05-11 10:45] VITALS: BP 139/70
--- NOTE | 2021-05-11 15:52 | ECGEPIP ---
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
== END 2021-05-11 11:05 | disposition home or self-care (01) ==
LOC: M ED 06:50
DX: R07.9 Chest pain, unspecified (principal); M79.602 Pain in left arm; E11.9 Type 2 diabetes mellitus without complications; I10 Essential (primary) hypertension

== ENCOUNTER 2021-11-23 12:46 | Emergency (ER) | payer MEDICARE ==
[~2021-11-23] VITALS: Ht 175.3 cm; Wt 81.8 kg
[~2021-11-23 12:46] MED LIST changes: +HYDR-3490 PO; +LISI20TA33 PO
[2021-11-23 14:41] LABS: RSV AMPLIFICATION NEGATIVE (NEGATIVE)
[2021-11-23 16:32] LABS: BASO % 0.6 % (0.0-1.0); EOS # 0.1 10^3/uL (0.0-0.5); EOS % 1.2 % (0.0-3.0); HEMATOCRIT 41.6 % (42.0-52.0); HEMOGLOBIN 13.9 g/dl (13.5-17.5); LYMPH % 30.5 % (24.0-44.0); MEAN CORPUSCULAR HEMOGLOBIN 31.3 pg (27.0-33.0); MEAN CORPUSCULAR HGB CONC 33.4 g/dl (32.0-36.5); MEAN CORPUSCULAR VOLUME 93.7 fl (80.0-96.0); MONO % 14.7 % (2.0-8.0); NEUTROPHILS # 3.5 10^3/uL (1.5-8.5); NEUTROPHILS % 52.4 % (36.0-66.0); PLATELET COUNT, AUTOMATED 246 10^3/uL (150-450); RED BLOOD COUNT 4.44 10^6/uL (4.30-6.10); WHITE BLOOD COUNT 6.7 10^3/uL (4.0-10.0)
[2021-11-23 17:00] LABS: BLOOD UREA NITROGEN 23 MG/DL (7-18); CARBON DIOXIDE LEVEL 29 MEQ/L (21-32); CHLORIDE LEVEL 104 MEQ/L (98-107); GLOMERULAR FILTRATION RATE > 60.0 (>35); GLUCOSE, FASTING 94 MG/DL (70-100); POTASSIUM SERUM 3.9 MEQ/L (3.5-5.1); SODIUM LEVEL 138 MEQ/L (136-145)
[2021-11-23] MEDS ORDERED: NASA0.9A NARES (17:54)
[2021-11-23] MEDS ORDERED: MUCI600T31 PO (17:54)
[2021-11-23 18:22] VITALS: BP 145/69
== END 2021-11-23 18:27 | disposition home or self-care (01) ==
LOC: M ED 12:46
DX: R09.81 Nasal congestion (principal); R73.09 Other abnormal glucose; I10 Essential (primary) hypertension; Z87.891 Personal history of nicotine dependence; Z87.01 Personal history of pneumonia (recurrent); Z79.811 Long term (current) use of aromatase inhibitors; Z79.899 Other long term (current) drug therapy

== ENCOUNTER 2023-02-18 14:17 | Emergency (ER) | payer MEDICARE ==
[~2023-02-18] VITALS: Ht 172.7 cm; Wt 83.4 kg
[~2023-02-18 14:17] MED LIST changes: +MUCI600T31 PO; +NASA0.9A NARES
[2023-02-18] MEDS ORDERED: NS 1,000 ML IV SCH (14:25)
[2023-02-18 14:27] VITALS: TEMP 98.6
[2023-02-18 14:54] LABS: BASO % 0.4 % (0.0-1.0); EOS % 0.3 % (0.0-3.0); HEMATOCRIT 38.3 % (42.0-52.0); HEMOGLOBIN 13.1 g/dl (13.5-17.5); LYMPH # 2.2 10^3/uL (1.5-5.0); LYMPH % 19.9 % (24.0-44.0); MEAN CORPUSCULAR HGB CONC 34.2 g/dl (32.0-36.5); MEAN CORPUSCULAR VOLUME 93.6 fl (80.0-96.0); MONO % 9.2 % (2.0-8.0); NEUTROPHILS # 7.6 10^3/uL (1.5-8.5); NEUTROPHILS % 69.8 % (36.0-66.0); PLATELET COUNT, AUTOMATED 269 10^3/uL (150-450); RED BLOOD COUNT 4.09 10^6/uL (4.30-6.10); WHITE BLOOD COUNT 10.9 10^3/uL (4.0-10.0)
[2023-02-18 15:05] LABS: LIPASE 39 U/L (12-53)
[2023-02-18 15:07] LABS: ALBUMIN 3.9 G/DL (3.2-5.2); ALKALINE PHOSPHATASE 53 U/L (46-116); ALT/SGPT 19 U/L (7.0-40); AST/SGOT 11 U/L (<34); BILIRUBIN,DIRECT 0.1 MG/DL (<0.4); BILIRUBIN,TOTAL 0.4 MG/DL (0.3-1.2); BLOOD UREA NITROGEN 27 MG/DL (9-23); CALCIUM LEVEL 8.5 MG/DL (8.3-10.6); CARBON DIOXIDE LEVEL 26 MMOL/L (20-31); CHLORIDE LEVEL 107 MMOL/L (98-107); GLOMERULAR FILTRATION RATE > 60.0 (>35); GLUCOSE, FASTING 134 MG/DL (74-106); POTASSIUM SERUM 4.1 MMOL/L (3.5-5.1); SODIUM LEVEL 138 MMOL/L (136-145); TOTAL PROTEIN 6.4 G/DL (5.7-8.2)
[2023-02-18] MEDS ORDERED: ISOVUE-370 76% 100ML VIAL As Ordered ONE (15:12)
[2023-02-18] MEDS ORDERED: AUGMENTIN 875 MG TAB PO ONE (16:35)
[2023-02-18] MEDS ORDERED: AMOX875T2 PO (16:35)
[2023-02-18 17:15] VITALS: BP 139/62
[2023-02-18 17:17] VITALS: O2SAT 99
== END 2023-02-18 17:23 | disposition home or self-care (01) ==
LOC: M ED 14:17 → EDBD 14:17 → M ED 17:23
DX: K57.31 Diverticulosis of large intestine without perforation or abscess with bleeding (principal); I10 Essential (primary) hypertension; E78.5 Hyperlipidemia, unspecified; K21.9 Gastro-esophageal reflux disease without esophagitis; K42.9 Umbilical hernia without obstruction or gangrene; N40.1 Benign prostatic hyperplasia with lower urinary tract symptoms; Z79.811 Long term (current) use of aromatase inhibitors; Z79.2 Long term (current) use of antibiotics; Z79.899 Other long term (current) drug therapy
CPT/HCPCS: 74177; 80048; 80076; 83690; 85025; 96360; 99284; Q9967

== ENCOUNTER 2023-08-30 08:04 | Day surgery (SDC) | payer MEDICARE ==
[~2023-08-30] VITALS: Ht 172.7 cm; Wt 86.0 kg
[~2023-08-30 08:04] MED LIST changes: +AMOX875T2 PO; +BSS IRRIG/VANCO(10MG)/TOBRA(5MG)/EPINEPH(1:1000-0.5CC)500ML BAG-ORONLY IR ONE; +CEFUROXIME 1MG/0.1ML INTRACAMERAL INJ As Ordered ONE; +CYCLOPENTOLATE 1% OPHTH SOLN 2ML BTL OS SCH; +KP F1200 PO; +LIDOCAINE 1% SDV 5ML VIAL As Ordered ONE; +LIDOCAINE 3.5 % 1ML OPHTH TOPICAL GEL OU ONE; +MIDAZOLAM INJ 2MG/2ML VIAL As Ordered ONE; +MULTTAB86 PO; +OCUVTAB4 PO; +OFLOXACIN 0.3 % (OCUFLOX) OPTH SOL 5ML OS ONE; +PHENYLEPHRINE 10% OPHTH SOL 5ML OS PRN; +PHENYLEPHRINE 2.5% OPHTH SOL 2ML OS SCH; +TROPICAMIDE 1% OPHTH SOLN 15ML OS SCH; +VITA100093 PO; +fentaNYL 100 MCG/2 ML INJECTION As Ordered ONE
[2023-08-30 10:35] VITALS: BP 148/67; TEMP 96.5; O2SAT 99
== END 2023-08-30 10:52 | disposition home or self-care (01) ==
LOC: M SDC 08:04
PROVIDERS: ATTEND Ophthalmology
DX: H25.12 Age-related nuclear cataract, left eye (principal); I10 Essential (primary) hypertension; R73.03 Prediabetes; F32.A Depression, unspecified; Z79.899 Other long term (current) drug therapy; Z87.891 Personal history of nicotine dependence
CPT/HCPCS: 66984; 92015; J0697; J2250; J3010; V2632

== ENCOUNTER 2023-10-16 15:29 | Emergency (ER) | payer MEDICARE ==
[~2023-10-16] VITALS: Ht 175.3 cm; Wt 86.3 kg
[~2023-10-16 15:29] MED LIST changes: -BSS IRRIG/VANCO(10MG)/TOBRA(5MG)/EPINEPH(1:1000-0.5CC)500ML BAG-ORONLY IR ONE; -CEFUROXIME 1MG/0.1ML INTRACAMERAL INJ As Ordered ONE; -CYCLOPENTOLATE 1% OPHTH SOLN 2ML BTL OS SCH; -LIDOCAINE 1% SDV 5ML VIAL As Ordered ONE; -LIDOCAINE 3.5 % 1ML OPHTH TOPICAL GEL OU ONE; -MIDAZOLAM INJ 2MG/2ML VIAL As Ordered ONE; -OFLOXACIN 0.3 % (OCUFLOX) OPTH SOL 5ML OS ONE; -PHENYLEPHRINE 10% OPHTH SOL 5ML OS PRN; -PHENYLEPHRINE 2.5% OPHTH SOL 2ML OS SCH; -TROPICAMIDE 1% OPHTH SOLN 15ML OS SCH; -fentaNYL 100 MCG/2 ML INJECTION As Ordered ONE
[2023-10-16 15:30] VITALS: TEMP 98.2
[2023-10-16 16:59] LABS: BASO % 0.4 % (0.0-1.0); EOS # 0.1 10^3/uL (0.0-0.5); EOS % 0.6 % (0.0-3.0); HEMOGLOBIN 13.7 g/dl (13.5-17.5); LYMPH # 2.4 10^3/uL (1.5-5.0); LYMPH % 26.8 % (24.0-44.0); MEAN CORPUSCULAR HEMOGLOBIN 32.1 pg (27.0-33.0); MEAN CORPUSCULAR HGB CONC 34.3 g/dl (32.0-36.5); MEAN CORPUSCULAR VOLUME 93.7 fl (80.0-96.0); MONO # 0.9 10^3/uL (0.0-0.8); MONO % 9.6 % (2.0-8.0); NEUTROPHILS # 5.6 10^3/uL (1.5-8.5); NEUTROPHILS % 62.2 % (36.0-66.0); PLATELET COUNT, AUTOMATED 285 10^3/uL (150-450); RED BLOOD COUNT 4.27 10^6/uL (4.30-6.10); WHITE BLOOD COUNT 9.1 10^3/uL (4.0-10.0)
[2023-10-16 17:10] LABS: BLOOD UREA NITROGEN 20 MG/DL (9-23); CALCIUM LEVEL 9.2 MG/DL (8.3-10.6); CARBON DIOXIDE LEVEL 30 MMOL/L (20-31); CHLORIDE LEVEL 101 MMOL/L (98-107); CK-MB VALUE MASS < 1.0 NG/ML (<3.6); CPK CREATINE PHOSPHOKINASE 119 U/L (46-171); CREATININE FOR GFR 1.09 MG/DL (0.70-1.30); GLOMERULAR FILTRATION RATE > 60.0 (>35); GLUCOSE, FASTING 104 MG/DL (74-106); MB/CK RELATIVE INDEX 0.84 (< OR =4); POTASSIUM SERUM 4.5 MMOL/L (3.5-5.1); SODIUM LEVEL 136 MMOL/L (136-145)
[2023-10-16 17:46] LABS: CK-MB VALUE MASS < 1.0 NG/ML (<3.6)
[2023-10-16 17:52] LABS: CPK CREATINE PHOSPHOKINASE 120 U/L (46-171); MB/CK RELATIVE INDEX 0.83 (< OR =4)
[2023-10-16 18:16] LABS: LIPASE 51 U/L (12-53)
[2023-10-16 18:18] LABS: ALBUMIN 3.7 G/DL (3.2-5.2); ALKALINE PHOSPHATASE 51 U/L (46-116); ALT/SGPT 25 U/L (7.0-40); AST/SGOT 18 U/L (<34); BILIRUBIN,DIRECT 0.1 MG/DL (<0.4); BILIRUBIN,TOTAL 0.5 MG/DL (0.3-1.2); TOTAL PROTEIN 6.8 G/DL (5.7-8.2)
[2023-10-16] MEDS: ASPIRIN 81MG CHEW TABLET PO ONE (18:23)
[2023-10-16] MEDS ORDERED: ISOVUE-370 76% 100ML VIAL As Ordered ONE (19:01)
[2023-10-16 20:15] VITALS: BP 148/65; O2SAT 97
== END 2023-10-16 21:02 | disposition home or self-care (01) ==
LOC: M ED 15:29
DX: R07.9 Chest pain, unspecified (principal); R91.1 Solitary pulmonary nodule; F17.200 Nicotine dependence, unspecified, uncomplicated; I10 Essential (primary) hypertension; K21.9 Gastro-esophageal reflux disease without esophagitis; Z79.811 Long term (current) use of aromatase inhibitors; Z79.899 Other long term (current) drug therapy
CPT/HCPCS: 36415; 71045; 71275; 80048; 80076; 82550; 82553; 83690; 84484; 85025; 93005; 93041; 94760; 99285; Q9967

== ENCOUNTER 2023-12-24 15:51 | Emergency (ER) | payer MEDICARE ==
[~2023-12-24] VITALS: Ht 175.3 cm; Wt 85.0 kg
[2023-12-24 17:15] LABS: BASO % 0.4 % (0.0-1.0); EOS % 0.4 % (0.0-3.0); HEMATOCRIT 39.1 % (42.0-52.0); HEMOGLOBIN 13.4 g/dl (13.5-17.5); LYMPH # 2.2 10^3/uL (1.5-5.0); LYMPH % 29.2 % (24.0-44.0); MEAN CORPUSCULAR HEMOGLOBIN 31.7 pg (27.0-33.0); MEAN CORPUSCULAR HGB CONC 34.3 g/dl (32.0-36.5); MEAN CORPUSCULAR VOLUME 92.4 fl (80.0-96.0); MONO % 12.9 % (2.0-8.0); NEUTROPHILS # 4.3 10^3/uL (1.5-8.5); NEUTROPHILS % 56.4 % (36.0-66.0); PLATELET COUNT, AUTOMATED 256 10^3/uL (150-450); RED BLOOD COUNT 4.23 10^6/uL (4.30-6.10); WHITE BLOOD COUNT 7.6 10^3/uL (4.0-10.0)
[2023-12-24 17:40] LABS: ALBUMIN 3.4 G/DL (3.2-5.2); ALKALINE PHOSPHATASE 48 U/L (46-116); ALT/SGPT 24 U/L (7.0-40); AST/SGOT 14 U/L (<34); BILIRUBIN,DIRECT 0.1 MG/DL (<0.4); BILIRUBIN,TOTAL 0.5 MG/DL (0.3-1.2); BLOOD UREA NITROGEN 23 MG/DL (9-23); CALCIUM LEVEL 9.4 MG/DL (8.3-10.6); CARBON DIOXIDE LEVEL 29 MMOL/L (20-31); CHLORIDE LEVEL 103 MMOL/L (98-107); CREATININE FOR GFR 1.01 MG/DL (0.70-1.30); GLOMERULAR FILTRATION RATE > 60.0 (>35); GLUCOSE, FASTING 105 MG/DL (74-106); POTASSIUM SERUM 4.4 MMOL/L (3.5-5.1); SODIUM LEVEL 139 MMOL/L (136-145); TOTAL PROTEIN 6.3 G/DL (5.7-8.2)
[2023-12-24 17:43] LABS: THYROID STIMULATING HORMONE 0.966 uIU/ML (0.55-4.78); THYROXINE (T4) 7.7 UG/DL (4.5-10.9)
[2023-12-24] MEDS ORDERED: MUCI600T31 PO (18:02)
[2023-12-24] MEDS: guaiFENesin ER TABLET 600 MG TAB PO STA (18:29)
[2023-12-24 18:30] VITALS: BP 141/67; TEMP 98.3; O2SAT 98
== END 2023-12-24 18:37 | disposition home or self-care (01) ==
LOC: M ED 15:51
DX: R09.89 Other specified symptoms and signs involving the circulatory and respiratory systems (principal); R00.1 Bradycardia, unspecified; I44.0 Atrioventricular block, first degree; I10 Essential (primary) hypertension; K21.9 Gastro-esophageal reflux disease without esophagitis; F32.9 Major depressive disorder, single episode, unspecified; Z79.811 Long term (current) use of aromatase inhibitors; Z79.899 Other long term (current) drug therapy